=== PATIENT | female | born 1965 | race Caucasian/White ===

== ENCOUNTER → 2018-06-15 | Outpatient (CLI) | payer BC ==
[~2018-06-15] MED LIST: ASP81TEC PO; accupril; elavil; lovastatin; soma PO; stool softner
[2018-06-15 14:51] LABS: BASOPHILS # (AUTO) 0.1 10^3/uL (0.0-0.1); BASOPHILS % (AUTO) 1 % (0-10); EOSINOPHILS # (AUTO) 0.2 10^3/uL (0.0-0.3); EOSINOPHILS % (AUTO) 4 % (0-10); HEMATOCRIT 48 % (35-52); HEMOGLOBIN 16.1 G/DL (11.5-16.0); LYMPHOCYTES # (AUTO) 2.5 X 10^3 (1.0-4.0); LYMPHOCYTES % (AUTO) 35 % (12-44); MEAN CORPUSCULAR HEMOGLOBIN 32 PG (25-34); MEAN CORPUSCULAR HGB CONC 34 G/DL (32-36); MEAN CORPUSCULAR VOLUME 95 FL (80-99); MEAN PLATELET VOLUME 10.5 FL (7.4-10.4); MONOCYTES # (AUTO) 0.7 X 10^3 (0.0-1.0); MONOCYTES % (AUTO) 10 % (0-12); NEUTROPHILS # (AUTO) 3.4 X 10^3 (1.8-7.8); NEUTROPHILS % (AUTO) 50 % (42-75); PLATELET COUNT 242 10^3/uL (130-400); RED CELL DISTRIBUTION WIDTH 14.3 % (10.0-14.5); WHITE BLOOD COUNT 6.9 10^3/uL (4.3-11.0)
--- NOTE | 2018-06-15 16:45 | Diagnostic Imaging Report ---
INDICATION: Bronchitis, cough and congestion. TIME OF EXAM: 3:25 p.m. EXAMINATION: Three views of the paranasal sinuses were obtained. FINDINGS: There appears to be an air-fluid level in the right maxillary sinus suggestive of right maxillary sinusitis. The left maxillary sinus is well aerated. The frontal sinus, sphenoid sinus and ethmoids appear to be well aerated. IMPRESSION: Findings consistent with right maxillary sinusitis. Dictated by: Dictated on workstation # [id number]
--- NOTE | 2018-06-15 17:54 | Diagnostic Imaging Report ---
EXAMINATION: PA and lateral chest at 03:24 p.m. INDICATION: Cough, congestion. FINDINGS: The heart size is within normal limits and stable when compared to 02/05/2014. The lungs are generally clear. There is no evidence for failure, pneumonia, or pleural effusion. The mediastinum is not widened. The osseous structures are intact. IMPRESSION: There is no evidence for active disease. When compared to the prior study, there has been no significant change. Dictated by: Dictated on workstation # [id number]
== END ==
LOC: RAD 14:33
PROVIDERS: ATTEND Nurse Practitioner Family
DX: J40 Bronchitis, not specified as acute or chronic (principal)
CPT/HCPCS: 36415; 70220; 71046; 85025